=== PATIENT | female | born 1975 | race Two or more races ===

== ENCOUNTER 2021-10-14 09:57 | Outpatient (CLI) | payer OTHER | END 2021-10-14 09:58 | disposition home or self-care (01) | LOC: LAB 09:57 | PROVIDERS: ATTEND Obstetrics & Gynecology | DX: N39.0 Urinary tract infection, site not specified (principal); D50.0 Iron deficiency anemia secondary to blood loss (chronic); K76.0 Fatty (change of) liver, not elsewhere classified; E11.69 Type 2 diabetes mellitus with other specified complication; E03.8 Other specified hypothyroidism; E55.0 Rickets, active ==

== ENCOUNTER 2021-10-14 10:44 | Outpatient (CLI) | payer OTHER | END 2021-10-14 10:56 | disposition home or self-care (01) | LOC: MAMO-SONO 10:44 | PROVIDERS: ATTEND Obstetrics & Gynecology | DX: N60.11 Diffuse cystic mastopathy of right breast (principal); N60.12 Diffuse cystic mastopathy of left breast; Z12.31 Encounter for screening mammogram for malignant neoplasm of breast ==

== ENCOUNTER 2022-02-16 09:03 | Outpatient (CLI) | payer OTHER | END 2022-02-16 09:17 | disposition home or self-care (01) | LOC: LAB 09:03 | PROVIDERS: ATTEND Obstetrics & Gynecology | DX: D50.0 Iron deficiency anemia secondary to blood loss (chronic) (principal); N39.0 Urinary tract infection, site not specified; N76.0 Acute vaginitis; E11.69 Type 2 diabetes mellitus with other specified complication; E55.0 Rickets, active; E03.8 Other specified hypothyroidism; N95.1 Menopausal and female climacteric states ==

== ENCOUNTER → 2022-05-11 | Outpatient (CLI) | payer OTHER | END | disposition home or self-care (01) | LOC: RAD 08:58 | PROVIDERS: ATTEND Family Medicine | DX: S92.902A Unspecified fracture of left foot, initial encounter for closed fracture (principal) ==

== ENCOUNTER 2022-06-15 08:13 | Outpatient (CLI) | payer OTHER | END 2022-06-15 09:09 | disposition home or self-care (01) | LOC: LAB 08:13 | DX: R73.01 Impaired fasting glucose (principal); G71.00 Muscular dystrophy, unspecified; E66.9 Obesity, unspecified; N92.0 Excessive and frequent menstruation with regular cycle ==

== ENCOUNTER → 2022-07-26 | Outpatient (CLI) | payer OTHER | END | disposition home or self-care (01) | LOC: SONOGRAMA 13:56 | PROVIDERS: ATTEND Obstetrics & Gynecology | DX: M76.62 Achilles tendinitis, left leg (principal) ==

== ENCOUNTER 2022-10-14 07:21 | Outpatient (CLI) | payer OTHER | END 2022-10-14 07:22 | disposition home or self-care (01) | LOC: LAB 07:21 | PROVIDERS: ATTEND Obstetrics & Gynecology | DX: E55.0 Rickets, active (principal) ==

== ENCOUNTER 2022-10-14 08:39 | Outpatient (CLI) | payer OTHER | END 2022-10-14 08:58 | disposition home or self-care (01) | LOC: MAMO-SONO 08:39 | PROVIDERS: ATTEND Obstetrics & Gynecology | DX: Z12.31 Encounter for screening mammogram for malignant neoplasm of breast (principal); N60.32 Fibrosclerosis of left breast; N60.11 Diffuse cystic mastopathy of right breast ==

== ENCOUNTER 2023-06-28 10:18 | Outpatient (CLI) | payer OTHER | END 2023-06-28 10:23 | disposition home or self-care (01) | LOC: LAB 10:18 | PROVIDERS: ATTEND Obstetrics & Gynecology | DX: E55.9 Vitamin D deficiency, unspecified (principal); D50.0 Iron deficiency anemia secondary to blood loss (chronic); E11.8 Type 2 diabetes mellitus with unspecified complications ==

== ENCOUNTER → 2023-10-17 09:32 | Outpatient (CLI) | payer OTHER ==
[2023-10-17 10:21] LABS: HEMATOCRIT 40.9 % (36.0-45.00); HEMOGLOBIN 14.2 g/dL (12.0-15.00); MEAN CELL VOLUME 90.4 fL (80.00-100.00); MEAN CORPUSCULAR HEMOGLOBIN 31.3 pg (27.00-32.0); MEAN CORPUSCULAR HGB CONC 34.6 g/dl (32.0-36.0); PLATELET COUNT 221 K/uL (150-450); RED BLOOD COUNT 4.52 M/uL (4.00-6.00); RED CELL DISTRIBUTION WIDTH 12.5 % (11.5-14.5)
[2023-10-17 10:23] LABS: URINE APPEARANCE Clear; URINE BILIRRUBIN Negative (NEGATIVE); URINE BLOOD Small; URINE COLOR Yellow; URINE GLUCOSE Negative (NEGATIVE); URINE LEUKOCYTE Negative; URINE NITRATE Negative; URINE PROTEIN Negative (NEGATIVE); URINE UROBILINOGEN 0.2 E.U./dl
[2023-10-17 10:28] LABS: URINE BACTERIA 22.6 uL (0.0-1933); URINE EPITHELIAL CELLS 3.8 uL (0.0-38.8)
[2023-10-17 11:12] LABS: URINE WBC 1.3 uL (0.0-23.2)
[2023-10-17 11:18] LABS: ALBUMIN 4.1 gm/dL (3.4-5.0); BILIRUBIN TOTAL 0.61 mg/dL (0.3-1.2); CALCIUM 9.7 mg/dL (8.5-10.1); CHOL HDL RATIO 3.8 (0-5.0); CREATININE SERUM 0.68 mg/dL (0.55-1.02); GFR 91.59; POTASSIUM 4.64 mEq/L (3.5-5.1); TOTAL PROTEIN 7.1 gm/dL (6.4-8.2); TSH 1.81 uIU/mL (0.358-3.74)
== END | disposition home or self-care (01) ==
LOC: LAB 09:32
PROVIDERS: ATTEND Obstetrics & Gynecology
DX: D50.0 Iron deficiency anemia secondary to blood loss (chronic) (principal); N39.0 Urinary tract infection, site not specified; N76.0 Acute vaginitis; E03.8 Other specified hypothyroidism; N95.1 Menopausal and female climacteric states; D51.9 Vitamin B12 deficiency anemia, unspecified

== ENCOUNTER 2023-10-17 10:28 | Outpatient (CLI) | payer OTHER | END 2023-10-17 10:40 | disposition home or self-care (01) | LOC: MAMO-SONO 10:28 | PROVIDERS: ATTEND Obstetrics & Gynecology | DX: N60.11 Diffuse cystic mastopathy of right breast (principal); N60.12 Diffuse cystic mastopathy of left breast; D25.0 Submucous leiomyoma of uterus; Z12.31 Encounter for screening mammogram for malignant neoplasm of breast ==

== ENCOUNTER → 2024-06-18 07:22 | Outpatient (CLI) | payer OTHER ==
[2024-06-18 08:56] LABS: HEMATOCRIT 38.9 % (36.0-45.00); HEMOGLOBIN 13.6 g/dL (12.0-15.00); MEAN CORPUSCULAR HEMOGLOBIN 31.6 pg (27.00-32.0); MEAN CORPUSCULAR HGB CONC 35.1 g/dl (32.0-36.0); PLATELET COUNT 242 K/uL (150-450); RED BLOOD COUNT 4.32 M/uL (4.00-6.00); RED CELL DISTRIBUTION WIDTH 12.5 % (11.5-14.5)
[2024-06-18 09:10] LABS: PH,URINE 5.5 (5.0-8.0); URINE APPEARANCE Clear; URINE BILIRRUBIN Negative (NEGATIVE); URINE BLOOD Small; URINE COLOR Yellow; URINE GLUCOSE Negative (NEGATIVE); URINE LEUKOCYTE Large; URINE NITRATE Negative; URINE PROTEIN Negative (NEGATIVE); URINE UROBILINOGEN 0.2 E.U./dl
[2024-06-18 09:11] LABS: URINE BACTERIA 539.1 uL (0.0-1933); URINE EPITHELIAL CELLS 29.6 uL (0.0-38.8); URINE RBC 11.9 uL (0.0-20.8); URINE WBC 229.8 uL (0.0-23.2)
[2024-06-18 09:30] LABS: ALBUMIN 3.9 gm/dL (3.4-5.0); BILIRUBIN TOTAL 0.4 mg/dL (0.3-1.2); CALCIUM 9.5 mg/dL (8.5-10.1); CHOL HDL RATIO 3.5 (0-5.0); CREATININE SERUM 0.54 mg/dL (0.55-1.02); GFR 119.02; GLOBULINA 3.2 G/DL (2.4-3.5); POTASSIUM 4.38 mEq/L (3.5-5.1); TOTAL PROTEIN 7.1 gm/dL (6.4-8.2)
== END | disposition home or self-care (01) ==
LOC: LAB 07:22
PROVIDERS: ATTEND General Practice
DX: R73.01 Impaired fasting glucose (principal); E78.1 Pure hyperglyceridemia; N39.9 Disorder of urinary system, unspecified; D52.9 Folate deficiency anemia, unspecified

== ENCOUNTER 2024-10-23 11:33 | Outpatient (CLI) | payer OTHER | END 2024-10-23 11:43 | disposition home or self-care (01) | LOC: MAMO-SONO 11:33 | DX: N60.29 Fibroadenosis of unspecified breast (principal); N95.1 Menopausal and female climacteric states; D25.0 Submucous leiomyoma of uterus ==

== ENCOUNTER 2024-12-04 06:37 | Outpatient (CLI) | payer OTHER ==
[2024-12-04 07:31] LABS: PH,URINE 5.5 (5.0-8.0); URINE APPEARANCE Clear; URINE BILIRRUBIN Negative (NEGATIVE); URINE BLOOD Small; URINE COLOR Yellow; URINE GLUCOSE Negative (NEGATIVE); URINE KETONE Negative (NEGATIVE); URINE LEUKOCYTE Small; URINE NITRATE Negative; URINE PROTEIN Negative (NEGATIVE); URINE UROBILINOGEN 0.2 E.U./dl
[2024-12-04 07:33] LABS: URINE BACTERIA 15.8 uL (0.0-1933); URINE EPITHELIAL CELLS 4.2 uL (0.0-38.8); URINE RBC 11.4 uL (0.0-20.8); URINE WBC 29.6 uL (0.0-23.2)
[2024-12-04 07:36] LABS: URINE CAST 0.14 uL (0.0-1.40)
[2024-12-04 07:57] LABS: HEMATOCRIT 39.3 % (36.0-45.00); HEMOGLOBIN 13.7 g/dL (12.0-15.00); MEAN CELL VOLUME 90.5 fL (80.00-100.00); MEAN CORPUSCULAR HEMOGLOBIN 31.6 pg (27.00-32.0); MEAN CORPUSCULAR HGB CONC 34.9 g/dl (32.0-36.0); PLATELET COUNT 226 K/uL (150-450); RED BLOOD COUNT 4.34 M/uL (4.00-6.00); RED CELL DISTRIBUTION WIDTH 12.2 % (11.5-14.5)
[2024-12-04 09:01] LABS: ALBUMIN 3.9 gm/dL (3.4-5.0); BILIRUBIN TOTAL 0.49 mg/dL (0.3-1.2); CALCIUM 9.4 mg/dL (8.5-10.1); CHOL HDL RATIO 4.4 (0-5.0); CREATININE SERUM 0.65 mg/dL (0.55-1.02); GFR 96.09; GLOBULINA 3.2 G/DL (2.4-3.5); POTASSIUM 4.22 mEq/L (3.5-5.1); TOTAL PROTEIN 7.1 gm/dL (6.4-8.2); TSH 3.2 uIU/mL (0.358-3.74)
== END 2024-12-04 06:49 | disposition home or self-care (01) ==
LOC: LAB 06:37
DX: E11.69 Type 2 diabetes mellitus with other specified complication (principal); E66.9 Obesity, unspecified; Z68.32 Body mass index [BMI] 32.0-32.9, adult; Z13.1 Encounter for screening for diabetes mellitus; D50.0 Iron deficiency anemia secondary to blood loss (chronic); N39.0 Urinary tract infection, site not specified; N76.0 Acute vaginitis; E03.8 Other specified hypothyroidism

== ENCOUNTER 2025-01-07 08:25 | Outpatient (CLI) | payer OTHER | END 2025-01-07 08:30 | disposition home or self-care (01) | LOC: SONOGRAMA 08:25 | PROVIDERS: ATTEND Obstetrics & Gynecology | DX: N95.0 Postmenopausal bleeding (principal); D25.0 Submucous leiomyoma of uterus ==

== ENCOUNTER → 2025-01-17 08:33 | Outpatient (CLI) | payer OTHER ==
[2025-01-17 10:16] LABS: HEMATOCRIT 39.9 % (36.0-45.00); HEMOGLOBIN 13.6 g/dL (12.0-15.00); MEAN CELL VOLUME 91.8 fL (80.00-100.00); MEAN CORPUSCULAR HEMOGLOBIN 31.2 pg (27.00-32.0); PLATELET COUNT 223 K/uL (150-450); RED BLOOD COUNT 4.34 M/uL (4.00-6.00); RED CELL DISTRIBUTION WIDTH 12.1 % (11.5-14.5)
[2025-01-17 10:17] LABS: URINE APPEARANCE Clear; URINE BILIRRUBIN Negative (NEGATIVE); URINE BLOOD Negative; URINE COLOR Yellow; URINE GLUCOSE Negative (NEGATIVE); URINE KETONE Negative (NEGATIVE); URINE LEUKOCYTE Large; URINE NITRATE Negative; URINE PROTEIN Negative (NEGATIVE); URINE UROBILINOGEN 0.2 E.U./dl
[2025-01-17 10:21] LABS: URINE BACTERIA 505.4 uL (0.0-1933); URINE EPITHELIAL CELLS 33.8 uL (0.0-38.8); URINE RBC 15.7 uL (0.0-20.8); URINE WBC 247.2 uL (0.0-23.2)
[2025-01-17 11:02] LABS: ALBUMIN 3.9 gm/dL (3.4-5.0); BILIRUBIN TOTAL 0.49 mg/dL (0.3-1.2); CALCIUM 9.2 mg/dL (8.5-10.1); CHOL HDL RATIO 3.8 (0-5.0); CREATININE SERUM 0.55 mg/dL (0.55-1.02); GFR 116.07; GLOBULINA 3.2 G/DL (2.4-3.5); POTASSIUM 4.46 mEq/L (3.5-5.1); T4 TOTAL 8.56 UG/DL (4.8-13.9); TOTAL PROTEIN 7.1 gm/dL (6.4-8.2); TSH 2.21 uIU/mL (0.358-3.74)
[2025-01-17 11:21] LABS: FOLIC ACID 16.31 ng/ml (4.78-20); T3 TOTAL 1.23 ng/ml (0.846-2.02)
== END | disposition home or self-care (01) ==
LOC: LAB 08:33
PROVIDERS: ATTEND General Practice
DX: R73.03 Prediabetes (principal); E78.5 Hyperlipidemia, unspecified; E03.9 Hypothyroidism, unspecified; D52.9 Folate deficiency anemia, unspecified; D51.9 Vitamin B12 deficiency anemia, unspecified

== ENCOUNTER 2025-01-17 10:13 | Outpatient (CLI) | payer OTHER | END 2025-01-17 10:21 | disposition home or self-care (01) | LOC: RAD 10:13 | PROVIDERS: ATTEND General Practice | DX: M25.572 Pain in left ankle and joints of left foot (principal) ==

== ENCOUNTER 2025-02-24 14:08 | Outpatient (CLI) | payer OTHER | END 2025-02-24 14:09 | disposition home or self-care (01) | LOC: LAB 14:08 | PROVIDERS: ATTEND Obstetrics & Gynecology Obstetrics | DX: N80.9 Endometriosis, unspecified (principal) ==

== ENCOUNTER 2025-04-10 06:20 | Outpatient (CLI) | payer OTHER ==
[2025-04-10 07:44] LABS: URINE APPEARANCE Clear; URINE BILIRRUBIN Negative (NEGATIVE); URINE BLOOD Small; URINE COLOR Yellow; URINE GLUCOSE Negative (NEGATIVE); URINE KETONE Negative (NEGATIVE); URINE LEUKOCYTE Moderate; URINE NITRATE Negative; URINE PROTEIN Negative (NEGATIVE); URINE UROBILINOGEN 0.2 E.U./dl
[2025-04-10 07:51] LABS: URINE BACTERIA 237.3 uL (0.0-1933); URINE EPITHELIAL CELLS 18.3 uL (0.0-38.8); URINE WBC 65.3 uL (0.0-23.2)
[2025-04-10 07:58] LABS: BASO % 0.8 % (0.1-1.2); EOS # 0.17 (0.04-0.54); EOS % 3.5 % (0.7-7.0); HEMATOCRIT 37.8 % (34.1-44.9); HEMOGLOBIN 12.9 g/dL (11.2-15.7); LYMPH # 2.01 (1.18-3.74); LYMPH % 41.5 % (19.3-53.1); MEAN CORPUSCULAR HEMOGLOBIN 30.9 pg (25.6-32.2); MONO # 0.38 (0.24-0.82); MONO % 7.9 % (4.7-12.5); NEUT # 2.23 (1.56-6.13); NEUT % 46.1 % (34.0-71.1); PLATELET COUNT 231 K/uL (163-369); RED BLOOD COUNT 4.18 M/uL (3.93-5.22); RED CELL DISTRIBUTION WIDTH 11.9 % (11.6-14.4)
[2025-04-10 08:11] LABS: URINE CAST 0.14 uL (0.0-1.40)
[2025-04-10 08:17] LABS: PARTIAL THROMBOPLASTIN TIME 27.6 SECONDS (22.0-34.0); PROTHROMBIN TIME 10.9 SECONDS (9.0-11.5)
[2025-04-10 08:43] LABS: ALBUMIN 3.8 gm/dL (3.4-5.0); BILIRUBIN TOTAL 0.52 mg/dL (0.3-1.2); CALCIUM 8.7 mg/dL (8.5-10.1); CHOL HDL RATIO 3.9 (0-5.0); CREATININE SERUM 0.57 mg/dL (0.55-1.02); GFR 111.38; POTASSIUM 4.43 mEq/L (3.5-5.1); TOTAL PROTEIN 6.8 gm/dL (6.4-8.2); TSH 3.69 uIU/mL (0.358-3.74)
== END 2025-04-10 06:25 | disposition home or self-care (01) ==
LOC: LAB 06:20
PROVIDERS: ATTEND Obstetrics & Gynecology Obstetrics
DX: D64.9 Anemia, unspecified (principal); N39.0 Urinary tract infection, site not specified; E03.8 Other specified hypothyroidism; E55.9 Vitamin D deficiency, unspecified; E78.00 Pure hypercholesterolemia, unspecified; E10.11 Type 1 diabetes mellitus with ketoacidosis with coma; E11.9 Type 2 diabetes mellitus without complications; Z01.812 Encounter for preprocedural laboratory examination; E10.9 Type 1 diabetes mellitus without complications; R19.02 Left upper quadrant abdominal swelling, mass and lump; N80.00 Endometriosis of the uterus, unspecified; N82.1 Other female urinary-genital tract fistulae; R97.8 Other abnormal tumor markers; R10.2 Pelvic and perineal pain; R53.1 Weakness; D25.9 Leiomyoma of uterus, unspecified; K59.00 Constipation, unspecified; N80.30 Endometriosis of pelvic peritoneum, unspecified; Z12.11 Encounter for screening for malignant neoplasm of colon; Z11.2 Encounter for screening for other bacterial diseases; R97.1 Elevated cancer antigen 125 [CA 125]; D68.9 Coagulation defect, unspecified; N94.89 Other specified conditions associated with female genital organs and menstrual cycle

== ENCOUNTER 2025-10-29 12:49 | Outpatient (CLI) | payer OTHER | END 2025-10-29 12:56 | disposition home or self-care (01) | LOC: MAMO-SONO 12:49 | PROVIDERS: ATTEND Obstetrics & Gynecology | DX: N60.29 Fibroadenosis of unspecified breast (principal) ==

== ENCOUNTER 2025-10-29 14:43 | Outpatient (CLI) | payer OTHER | END 2025-10-29 14:47 | disposition home or self-care (01) | LOC: LAB 14:43 | PROVIDERS: ATTEND Obstetrics & Gynecology | DX: E55.9 Vitamin D deficiency, unspecified (principal) ==